=== PATIENT | male | born 1980 | race African-American/Black ===

== ENCOUNTER 2017-07-05 16:10 | Emergency (ER) | payer BC ==
[~2017-07-05] VITALS: Ht 180.3 cm; Wt 77.1 kg
[2017-07-05 16:28] LABS: URINE SOURCE CLEAN CATCH
[2017-07-05 16:37] LABS: URINE APPEARANCE CLEAR; URINE BILIRUBIN NEG (NEG); URINE BLOOD TRACE (NEG); URINE COLOR YELLOW; URINE GLUCOSE NEG (NEG); URINE KETONE NEG (NEG); URINE LEUKOCYTE ESTERASE NEG (NEG); URINE NITRATE NEG (NEG); URINE PROTEIN NEG (NEG); URINE SPECIFIC GRAVITY 1.018 (1.003-1.035)
[2017-07-05 16:41] LABS: URINE BACTERIA AUWI NEG (NEGATIVE); URINE SQUAMOUS EPITHELIAL CELL NONE SEEN /[HPF]; UWBCS1 AUWI 0-2 (0-5)
[2017-07-05 16:46] LABS: CULTURE INDICATED? NO
[2017-07-08 16:33] LABS: CHLAMYDIA TRACH Not Detected (Not Detected); N GONOR Not Detected (Not Detected)
== END 2017-07-05 18:30 | disposition home or self-care (01) ==
LOC: CED 16:10 → CFTX 16:10
PROVIDERS: Nurse Practitioner
DX: R36.9 Urethral discharge, unspecified (principal); R30.0 Dysuria; F17.210 Nicotine dependence, cigarettes, uncomplicated
CPT/HCPCS: 81003; 87491; 87591; 96372; 99283; J0696